=== PATIENT | female | born 1990 | race Two or more races ===

== ENCOUNTER 2024-04-29 13:30 | Outpatient (CLI) | payer OTHER | END 2024-04-29 13:35 | disposition home or self-care (01) | LOC: PRENATAL 13:30 | PROVIDERS: ATTEND Obstetrics & Gynecology Maternal & Fetal Medicine | DX: O36.80X0 Pregnancy with inconclusive fetal viability, not applicable or unspecified (principal); Z36.82 Encounter for antenatal screening for nuchal translucency; Z14.8 Genetic carrier of other disease; Z3A.12 12 weeks gestation of pregnancy ==

== ENCOUNTER 2024-06-20 10:47 | Outpatient (CLI) | payer OTHER | END 2024-06-20 10:48 | disposition home or self-care (01) | LOC: PRENATAL 10:47 | PROVIDERS: ATTEND Obstetrics & Gynecology Maternal & Fetal Medicine | DX: O44.00 Complete placenta previa NOS or without hemorrhage, unspecified trimester (principal); O26.849 Uterine size-date discrepancy, unspecified trimester; Z3A.20 20 weeks gestation of pregnancy ==

== ENCOUNTER → 2024-09-12 10:02 | Outpatient (CLI) | payer OTHER | END | disposition home or self-care (01) | LOC: PRENATAL 10:02 | PROVIDERS: ATTEND Obstetrics & Gynecology Maternal & Fetal Medicine | DX: O26.849 Uterine size-date discrepancy, unspecified trimester (principal); O36.8199 Decreased fetal movements, unspecified trimester, other fetus; O24.419 Gestational diabetes mellitus in pregnancy, unspecified control; Z3A.31 31 weeks gestation of pregnancy ==

== ENCOUNTER 2024-10-17 13:03 | Outpatient (CLI) | payer OTHER | END 2024-10-17 13:04 | disposition home or self-care (01) | LOC: PRENATAL 13:03 | PROVIDERS: ATTEND Obstetrics & Gynecology Maternal & Fetal Medicine | DX: O26.849 Uterine size-date discrepancy, unspecified trimester (principal); O36.8199 Decreased fetal movements, unspecified trimester, other fetus; O24.419 Gestational diabetes mellitus in pregnancy, unspecified control; Z3A.36 36 weeks gestation of pregnancy ==

== ENCOUNTER 2024-10-28 08:19 | Inpatient (IN) | payer OTHER ==
[2024-10-28] VITALS (9 sets, daily range): BP systolic 106–146; BP diastolic 58–90; O2SAT 98
[~2024-10-28] VITALS: Ht 162.6 cm; Wt 86.2 kg
[2024-10-28] MEDS ORDERED: PRENATAL TABLE1 EAC1 PO (08:24)
[2024-10-28] MEDS ORDERED: AMPICILLIN SODIUM 2,000 MG VIAL ONE (08:35)
[2024-10-28] MEDS ORDERED: AMPICILLIN SODIUM 2,000 MG VIAL IV ONE (08:45)
[2024-10-28] MEDS ORDERED: RINGERS SOLUTION,LACTATED 1,000 ML IV SCH (08:45)
[2024-10-28 08:54] LABS: BASO % 0.3 % (0.1-1.2); EOS # 0.04 (0.04-0.54); EOS % 0.3 % (0.7-7.0); LYMPH # 2.90 (1.18-3.74); LYMPH % 25.1 % (19.3-53.1); MEAN PLATELET VOLUME 11.20 fl (9.4-12.4); MONO # 0.62 (0.24-0.82); MONO % 5.4 % (4.7-12.5); NEUT # 7.90 (1.56-6.13); NEUT % 68.3 % (34.0-71.1); RED CELL DISTRIBUTION WIDTH 12.5 % (11.6-14.4)
[2024-10-28] MEDS ORDERED: AMPICILLIN SODIUM 1,000 MG VIAL IV SCH (09:00)
[2024-10-28 09:03] LABS: URINE APPEARANCE Clear; URINE BILIRRUBIN Negative (NEGATIVE); URINE BLOOD Negative; URINE COLOR Yellow; URINE GLUCOSE Negative (NEGATIVE); URINE KETONE Negative (NEGATIVE); URINE LEUKOCYTE Negative; URINE NITRATE Negative; URINE PROTEIN Negative (NEGATIVE); URINE UROBILINOGEN 0.2 E.U./dl
[2024-10-28 09:07] LABS: URINE BACTERIA 248.3 uL (0.0-1933); URINE EPITHELIAL CELLS 14.9 uL (0.0-38.8); URINE RBC 2.1 uL (0.0-20.8); URINE WBC 9.5 uL (0.0-23.2)
[2024-10-28 09:12] LABS: URINE CAST 0.00 uL (0.0-1.40)
[2024-10-28 09:18] LABS: INR < 0.93
[2024-10-28 09:30] LABS: ALT/SGPT 22.0 U/L (12-78); AST/SGOT 23.0 U/L (15-37); BILIRUBIN TOTAL 0.2 mg/dL (0.3-1.2); BUN CREA RATIO 22.0 (7.0-25.0); CREATININE SERUM 0.55 mg/dL (0.55-1.02); GFR 126.52; GLOBULINA 3.2 G/DL (2.4-3.5); GLUCOSE FASTING 91.0 mg/dL (65-100); OSMOLALITY SERUM 277.0 MOSM/KG (275-295)
[2024-10-28] MEDS ORDERED: OXYTOCIN 20 UNITS/500ML RL PIGGYBAG IV ONE (12:35)
[2024-10-28] MEDS ORDERED: OXYTOCIN 500 ML IV SCH (13:00)
[2024-10-28] MEDS ORDERED: CHLORHEXIDINE GLUCONATE 120 ML BOTTLE TOP ONE (17:25)
[2024-10-28] MEDS ORDERED: LIDOCAINE HCL 1% 10ML VIAL ONE (17:25)
[2024-10-28] MEDS ORDERED: OXYTOCIN 20 UNITS/1000ML RL PIGGYBAG IV ONE (17:25)
[2024-10-28] MEDS ORDERED: ERYTHROMYCIN BASE OPHT 1GM EACH TUBE OP ONE ×2 (17:25→20:45)
[2024-10-28] MEDS ORDERED: OXYTOCIN 1,000 ML IV SCH (20:30)
[2024-10-28] MEDS ORDERED: ACETAMINOPHEN 500 MG GEL..CAP PO PRN (20:30)
[2024-10-28] MEDS ORDERED: CHLORHEXIDINE GLUCONATE 120 ML BOTTLE TP SCH (20:30)
[2024-10-28] MEDS ORDERED: BENZOCAINE/MENTHOL 90 ML BOTTLE TOP PRN (20:30)
[2024-10-28] MEDS ORDERED: LIDOCAINE HCL 1% 10ML VIAL PERCUT ONE (20:45)
[2024-10-28] MEDS ORDERED: HYDROCORTISONE TOP SCH (21:00)
[2024-10-28] MEDS ORDERED: HYDROCORTISONE 2.5% 30 GM TUBE RECTAL SCH (21:00)
[2024-10-28] MEDS ORDERED: PRAMOXINE TOP SCH (21:00)
[2024-10-29 00:10] VITALS: BP 133/75
[2024-10-29 05:19] LABS: BASO % 0.2 % (0.1-1.2); EOS # 0.00 (0.04-0.54); EOS % 0.0 % (0.7-7.0); LYMPH # 2.87 (1.18-3.74); LYMPH % 13.8 % (19.3-53.1); MEAN PLATELET VOLUME 11.20 fl (9.4-12.4); MONO # 1.23 (0.24-0.82); MONO % 5.9 % (4.7-12.5); NEUT # 16.45 (1.56-6.13); NEUT % 79.3 % (34.0-71.1); RED CELL DISTRIBUTION WIDTH 12.7 % (11.6-14.4)
[2024-10-29 08:42] VITALS: BP 130/87
[2024-10-29] MEDS ORDERED: DOCUSATE SODIUM 100MG CAP PO SCH (09:00)
[2024-10-29] MEDS ORDERED: PNV,CALCIUM 72/IRON/FOLIC ACID 1 TAB TABLET PO SCH (09:00)
[2024-10-29 16:00] VITALS: BP 139/88
[2024-10-30] VITALS: BP 121/72
[2024-10-30 07:45] VITALS: BP 124/78
== END 2024-10-30 12:38 | disposition home or self-care (01) | DRG 807 ==
LOC: OB/GYN 08:19 → LDR 08:19 → OB/GYN 20:20
PROVIDERS: ADMIT Obstetrics & Gynecology; ATTEND Obstetrics & Gynecology
PROC: 10E0XZZ Delivery of Products of Conception, External Approach (ICD-10-PCS; principal; 2024-10-28)
PROC: 0KQM0ZZ Repair Perineum Muscle, Open Approach (ICD-10-PCS; 2024-10-28)
PROC: 4A1HXCZ Monitoring of Products of Conception, Cardiac Rate, External Approach (ICD-10-PCS; 2024-10-28)
DX: O70.1 Second degree perineal laceration during delivery (principal); Z37.0 Single live birth; O99.824 Streptococcus B carrier state complicating childbirth; Z3A.38 38 weeks gestation of pregnancy